=== PATIENT | male | born 1995 | race Hispanic/Latino ===

== ENCOUNTER 2025-06-19 06:06 | Inpatient (IN) | payer OTHER, SELFPAY ==
[2025-06-19] MEDS ORDERED: DICYCLOMINE HCL 20 MG/2 ML AMP IM ONE (06:37)
[2025-06-19] MEDS ORDERED: KETOROLAC 30 MG/ML INJ ONE (06:37)
[2025-06-19] MEDS ORDERED: MORPHINE 4 MG/ML SYR ONE (06:37)
[2025-06-19] MEDS ORDERED: NA CHLORIDE 0.9% 1,000 ML ONE (06:37)
[2025-06-19] MEDS ORDERED: FAMOTIDINE 20 MG/2 ML VIAL IV ONE (06:37)
[2025-06-19] MEDS ORDERED: ONDANSETRON 4 MG/2 ML VIAL ONE (06:37)
[2025-06-19 06:43] LABS: Absolute Lymphocytes (CBC) 0.9 K/uL (0.7-4.9); Hematocrit 45.7 % (39.6-49.0); Hemoglobin 15.9 g/dL (13.6-17.9); MCH 31.7 pg (27.0-35.0); MCHC 34.9 g/dL (32.0-36.0); MCV 91.0 fL (80-100); MPV 9.2 fL (7.6-11.3); Nucleated RBC Absolute Count 0.0 (0-0); Nucleated Red Blood Cells % 0.1 % (0-0); RBC Red Blood Cell Count 5.02 M/uL (4.33-5.43); White Blood Count 19.40 thou/uL (4.3-10.9)
--- NOTE | 2025-06-19 07:33 | RAD REPORT ---
EXAMINATION: CT ABDOMEN AND PELVIS WITH CONTRAST CLINICAL INDICATION: Abdominal pain TECHNIQUE: CT abdomen and pelvis was performed, after the administration of 100 cc Isovue-300.. Sagit cecelia and coronal reconstructions were obtained. One or more of the following dose reduction techniques were used: Automated exposure control, adjustment of the mA and kV according to patient si ze, and iterative reconstruction. Unless otherwise specified, incidental findings do not require dedicated imaging follow-up. [id number]. Oral contrast was not given which limits evaluation of bowel and appendix. COMPARISON: .None FINDINGS: Liver, spleen, pancreas, adrenals and kidneys appear unremarkable No evidence of diverticulitis. The appendix is not visualized. No stranding adjacent Cholelithiasis. Gallbladder mildly distended. : IMPRESSION: Cholelithiasis. Mild gallbladder distention. Ultrasound is recommended
[2025-06-19 07:37] LABS: ALT/SGPT 50.0 U/L (16-61); AST/SGOT 29.0 U/L (15-37); Albumin 3.8 g/dL (3.4-5.0); Albumin/Globulin Ratio 1.2 (1.1-1.8); Alkaline Phosphatase 53.0 U/L (45-117); Anion Gap 13.8 mEq/L (5.0-15.0); BUN Blood Urea Nitrogen 15.0 mg/dL (7-18); Globulin 3.2 g/dL (2.3-3.5); Glucose Level 139.0 mg/dL (74-106); Lipase 21.0 U/L (13-75); Potassium 3.8 mEq/L (3.5-5.1)
[2025-06-19] MEDS ORDERED: PIPERACIL/TAZO 3.375 GM VIAL IV ONE (07:50)
[2025-06-19] MEDS ORDERED: NA CHLORIDE 0.9% 100 ML ONE (07:50)
--- NOTE | 2025-06-19 08:51 | RAD REPORT ---
EXAM: Abdominal exam Limited ultrasound CLINICAL HISTORY: Abdominal pain COMPARISON: June 19, 2025 CT FINDINGS: Several gallstones. Largest 2.2 cm. One lies within the gallbladder neck Borderline gallbladder wall thickening Biliary tree normal caliber IMPRESSION: Cholelithiasis. Borderline gallbladder wall thickening may indicate cholecystitis
--- NOTE | 2025-06-19 09:01 | EDPHYS ---
Physician Documentation [facility] Name: Fco Santiago Age: 29 yrs Sex: Male : 1995 Arrival Date: 06/19/2025 Time: 06:06 Bed 15 Private MD: ED Physician Jones Strange HPI: 06/19 06:33 This 29 yrs old Other Race Male presents to ER via Unassigned with complaints of sp4 Abdominal Pain, Nausea/Vomiting, stomach is buring. 06:33 29-year-old male presents with acute onset of left upper quadrant abdominal pain sp4 associated with nausea and vomiting after consuming [employer] last night at 7 PM patient reported 3 episodes of vomiting., Denied diarrhea. Historical: - Allergies: 06:37 No Known Allergies; vc1 - Home Meds: 06:37 None [Active]; vc1 - PMHx: 06:37 None; vc1 - PSHx: 06:37 None; vc1 - Immunization history:: Client reports receiving the 2nd dose of the Covid vaccine, Flu vaccine is not up to date. - Infectious Disease History:: Denies. - Family history:: not pertinent. - Social history:: Smoking status: Patient denies any tobacco usage or history of. ROS: 06:34 Constitutional: Negative for fever, chills, and weight loss, positive nausea sp4 vomiting, positive abdominal pain 06:34 All other systems are negative, Exam: 06:34 Constitutional: This is a well developed, well nourished patient who is awake, alert, sp4 and in no acute distress. Head/Face: Normocephalic, atraumatic. Eyes: Pupils equal round and reactive to light, extra-ocular motions intact. Lids and lashes normal. Conjunctiva and sclera are not injected. Cornea within normal limits. Periorbital areas with no swelling, redness, or edema. ENT: Nares patent. No nasal discharge, no septal abnormalities noted. Tympanic membranes are normal and external auditory canals are clear. Oropharynx with no redness, swelling, or masses, exudates, or evidence of obstruction, uvula midline. Mucous membranes moist. Neck: Trachea midline, no thyromegaly or masses palpated, and no cervical lymphadenopathy. Supple, full range of motion without nuchal rigidity, or vertebral point tenderness. Chest/axilla: Normal chest wall appearance and motion. Nontender with no deformity. No lesions are appreciated. Cardiovascular: Regular rate and rhythm with a normal S1 and S2. No gallops, murmurs, or rubs. No pulse deficits. Respiratory: Lungs have equal breath sounds bilaterally, clear to auscultation and percussion. No rales, rhonchi or wheezes noted. No increased work of breathing, no retractions or nasal flaring. Abdomen/GI: Soft, with normal bowel sounds. No distension or tympany. No guarding , positive upper abdominal tenderness without rebound Back: No spinal tenderness. No costovertebral tenderness. Skin: Warm, dry with normal turgor. Normal color with no rashes, no lesions, and no evidence of cellulitis. MS/ Extremity: Pulses equal, no cyanosis. Neurovascular intact. Full, normal range of motion. Neuro: Awake and alert, GCS 15, oriented to person, place, time, and situation. Cranial nerves II-XII grossly intact. Motor strength 5/5 in all extremities. Sensory grossly intact. Psych: Awake, alert, with orientation to person, place and time. Behavior, mood, and affect are within normal limits Vital Signs: 06:29 BP 124 / 69; Pulse 97; Resp 22; Temp 99.2; Pulse Ox 100% ; Weight 90.72 kg; Height 5 vc1 ft. 7 in. ; Pain 9/10; 07:00 BP 129 / 78; Pulse 96; Resp 18; Pulse Ox 100% ; bp 08:09 BP 112 / 74; Pulse 97; Resp 18; Pulse Ox 98% ; bp 06:29 Body Mass Index 31.32 (90.72 kg, 170.18 cm) vc1 06:29 Pain Scale: Adult vc1 MDM: 06:28 Medical Screening Exam initiated sp4 07:47 Data reviewed: vital signs, nurses notes, lab test result(s), radiologic studies. sp3 Transition of care: Care assumed from Terrence Ramos MD. ED course: Patient taken over by me from nighttime physician for pending workup. CT scan demonstrates cholelithiasis with distended gallbladder. Ultrasound pending to further evaluate. 19,000 WBC count noted. Will go ahead and start antibiotics. Disposition pending workup and patient course with probable admission.. 09:00 ED course: Diagnosed confirmed with ultrasound demonstrating stone in the gallbladder sp3 neck. Zosyn has already been started. Patient will be admitted to the hospital service with on-call surgeon for surgical consultation.. 06/19 06:28 Order name: CBC with Diff sp4 06/19 06:28 Order name: CMP; Complete Time: 07:42 sp4 06/19 06:28 Order name: Lipase; Complete Time: 07:42 sp4 06/19 06:52 Order name: CBC Smear Scan EDMS 06/19 09:36 Order name: CBC with Automated Diff EDMS 06/19 09:36 Order name: CBC with Automated Diff EDMS 06/19 09:36 Order name: CBC with Automated Diff EDMS 06/19 09:36 Order name: CBC with Automated Diff EDMS 06/19 09:36 Order name: CBC with Automated Diff EDMS 06/19 09:36 Order name: Comprehensive Metabolic Panel EDMS 06/19 09:36 Order name: Comprehensive Metabolic Panel EDMS 06/19 09:36 Order name: Comprehensive Metabolic Panel EDMS 06/19 09:36 Order name: Comprehensive Metabolic Panel EDMS 06/19 09:36 Order name: Comprehensive Metabolic Panel EDMS 06/19 06:40 Order name: CT Abd/Pelvis - IV Contrast Only; Complete Time: 07:42 sp4 06/19 07:43 Order name: US Abdomen Limited; Complete Time: 08:52 sp3 06/19 06:28 Order name: IV Saline Lock; Complete Time: 06:59 sp4 06/19 06:28 Order name: Labs collected and sent; Complete Time: 07:00 sp4 06/19 06:49 Order name: Labs - recollect needed: recollect green top; Complete Time: 07:14 bd Administered Medications: 06:59 Drug: Famotidine IVP 20 mg IVP once; dilute with 10 mL 0.9% NaCl; give over 2 minutes tb4 Route: IVP; Site: left antecubital; 06:59 Drug: TORadol - Ketorolac IVP 30 mg IVP once Route: IVP; Site: left antecubital; tb4 06:59 Drug: Ondansetron IVP 8 mg IVP once; over 2 minutes Route: IVP; Site: left antecubital; tb4 06:59 Drug: Dicyclomine IM 20 mg IM once Route: IM; Site: right deltoid; tb4 06:59 Drug: NS 0.9% IV 1000 ml IV at 1000 ml once; to be given as a bolus over 60 minutes tb4 Route: IV; Rate: 1000 ml; Site: left antecubital; 07:00 Drug: morphine IVP or IV 4 mg IVP once over 4 mins Route: IVP; Infused Over: 4 mins; tb4 Site: left antecubital; 07:14 Drug: NS 0.9% IV 1000 ml IV at 1 bolus Per protocol; to be given as a bolus over 60 bp minutes Route: IV; Rate: 1 bolus; Site: left antecubital; 08:02 Drug: Piperacillin-Tazobactam IVPB 3.375 grams IVPB once over 60 mins; (mix in NS 100 ar8 mL) Route: IVPB; Infused Over: 60 mins; Site: left antecubital; Disposition Summary: 06/19/25 09:00 Hospitalization Ordered Notes: Hospitalization Status: Observation sp3 Provider: Graham Rodríguez sp3 Location: Telemetry/MedSurg (observation) sp3 Condition: Stable sp3 Problem: new sp3 Symptoms: are unchanged sp3 Bed/Room Type: Standard sp3 Room Assignment: 224(06/19/25 10:52) jl7 Diagnosis - Acute cholecystitis sp3 Forms: - Medication Reconciliation Form sp3 - SBAR form sp3 - Leadership Thank You Letter sp3 Signatures: Dispatcher [employer] EDMS Janett Cordoba Jahala RN RN jl7 Nazario Francis, RN RN Jones Ibarra MD MD sp3 Marcella Simmons RN RN 1 Terrence Ramos MD MD sp4 Linh Benavides RN RN tb4 Aris Hubbard, RN RN ar8 Corrections: (The following items were deleted from the chart) 06:40 06:40 Abdomen Pelvis W Con+CT.RAD.BRZ ordered. EDMS EDMS 09:37 06:28 UA Rfx Elías Cult if indicated+U.LAB.BRZ ordered. EDMS EDMS 10:52 09:00 sp3 jl7
--- NOTE | 2025-06-19 09:01 | ER ---
Nurse's Notes [facility] Name: Fco Santiago Age: 29 yrs Sex: Male : 1995 Arrival Date: 06/19/2025 Time: 06:06 Bed 15 Private MD: Diagnosis: Acute cholecystitis Presentation: 06/19 06:29 Chief complaint: Patient states: started having severe upper abdominal pain that wraps vc1 around to the back then down to my belly button. Vomited 3 times. Everything started after eating [employer]. Coronavirus screen: Client denies travel out of the [place] in the last 14 days. At this time, the client does not indicate any symptoms associated with coronavirus-19. Ebola Screen: Patient negative for fever greater than or equal to 101.5 degrees Fahrenheit, and additional compatible Ebola Virus Disease symptoms Patient denies exposure to infectious person. Patient denies travel to an Ebola-affected area in the 21 days before illness onset. No symptoms or risks identified at this time. Initial Sepsis Screen: Does the patient meet any 2 criteria? RR > 20 per min. No. Patient's initial sepsis screen is negative. Does the patient have a suspected source of infection? No. Patient's initial sepsis screen is negative. Risk Assessment: Do you want to hurt yourself or someone else? Patient reports no desire to harm self or others. Onset of symptoms was June 18, 2025 at 21:00. 06:29 Method Of Arrival: Ambulatory vc1 06:29 Acuity: DONAVAN 3 vc1 Triage Assessment: 06:38 General: Appears in no apparent distress. uncomfortable, ill, obese, well groomed, well vc1 developed, well nourished, Behavior is calm, cooperative, appropriate for age. Pain: Complains of pain in epigastric area, right upper quadrant and left upper quadrant Pain radiates to mid back area and umbilical area Pain currently is 9 out of 10 on a pain scale. EENT: No deficits noted. No signs and/or symptoms were reported regarding the EENT system. Neuro: Level of Consciousness is awake, alert, obeys commands, Oriented to person, place, time. Cardiovascular: Capillary refill < 3 seconds. Respiratory: Airway is patent Respiratory effort is even, unlabored, Respiratory pattern is regular, symmetrical, Breath sounds are clear bilaterally. GI: Abdomen is round Reports epigastric pain, vomiting, Patient currently denies diarrhea. : No deficits noted. No signs and/or symptoms were reported regarding the genitourinary system. Derm: Skin is intact, is healthy with good turgor, Skin is dry, Skin is normal, Skin temperature is warm. Musculoskeletal: Circulation, motion, and sensation intact. Range of motion: intact in all extremities. Historical: - Allergies: 06:37 No Known Allergies; vc1 - Home Meds: 06:37 None [Active]; vc1 - PMHx: 06:37 None; vc1 - PSHx: 06:37 None; vc1 - Immunization history:: Client reports receiving the 2nd dose of the Covid vaccine, Flu vaccine is not up to date. - Infectious Disease History:: Denies. - Family history:: not pertinent. - Social history:: Smoking status: Patient denies any tobacco usage or history of. Screenin:37 [facility] ED Fall Risk Assessment (Adult) History of falling in the last 3 months, vc1 including since admission No falls in past 3 months (0 pts) Confusion or Disorientation No (0 pts) Intoxicated or Sedated No (0 pts) Impaired Gait No (0 pts) Mobility Assist Device Used No (0 pt) Altered Elimination Yes (1 pt) Score/Fall Risk Level 0 - 2 = Low Risk Oriented to surroundings, Maintained a safe environment, Educated pt \T\ family on fall prevention, incl call for assistance when getting out of bed, Assessed \T\ reinforced patient's understanding of fall precautions, Hourly rounding (assess needs \T\ fall precautionary measures) done. Abuse screen: Denies threats or abuse. Nutritional screening: No deficits noted. Tuberculosis screening: No symptoms or risk factors identified. Assessment: 07:00 Reassessment: RECD REPORT FROM HECTOR WHITING. 29YO HM P/W ABD PAIN AND N/V. CT PENDING. bp Vital Signs: 06:29 BP 124 / 69; Pulse 97; Resp 22; Temp 99.2; Pulse Ox 100% ; Weight 90.72 kg; Height 5 vc1 ft. 7 in. ; Pain 9/10; 07:00 BP 129 / 78; Pulse 96; Resp 18; Pulse Ox 100% ; bp 08:09 BP 112 / 74; Pulse 97; Resp 18; Pulse Ox 98% ; bp 06:29 Body Mass Index 31.32 (90.72 kg, 170.18 cm) vc1 06:29 Pain Scale: Adult vc1 ED Course: 06:10 Patient arrived in ED. gm2 06:27 Terrence Ramos MD is Attending Physician. sp4 06:37 Triage completed. vc1 06:37 Arm band placed on right wrist. vc1 06:38 Patient has correct armband on for positive identification. Bed in low position. Call vc1 light in reach. Provided Education on: Plan of care. Pulse ox on. NIBP on. 06:54 Inserted saline lock: 20 gauge in left antecubital area, using aseptic technique. oh1 Flushed with 10 mL NS. 07:01 Nazario Francis, JOHANNE is Primary Nurse. bp 07:07 Attending Physician role handed off by Terrence Ramos MD sp3 07:07 Jones Strange MD is Attending Physician. sp3 07:27 CT Abd/Pelvis - IV Contrast Only In Process Unspecified. EDMS 07:50 US at bedside. ar8 08:36 US Abdomen Limited In Process Unspecified. EDMS 09:00 Graham Rodríguez is Hospitalizing Provider. sp3 Administered Medications: 06:59 Drug: Famotidine IVP 20 mg IVP once; dilute with 10 mL 0.9% NaCl; give over 2 minutes tb4 Route: IVP; Site: left antecubital; 06:59 Drug: TORadol - Ketorolac IVP 30 mg IVP once Route: IVP; Site: left antecubital; tb4 06:59 Drug: Ondansetron IVP 8 mg IVP once; over 2 minutes Route: IVP; Site: left antecubital; tb4 06:59 Drug: Dicyclomine IM 20 mg IM once Route: IM; Site: right deltoid; tb4 06:59 Drug: NS 0.9% IV 1000 ml IV at 1000 ml once; to be given as a bolus over 60 minutes tb4 Route: IV; Rate: 1000 ml; Site: left antecubital; 07:00 Drug: morphine IVP or IV 4 mg IVP once over 4 mins Route: IVP; Infused Over: 4 mins; tb4 Site: left antecubital; 07:14 Drug: NS 0.9% IV 1000 ml IV at 1 bolus Per protocol; to be given as a bolus over 60 bp minutes Route: IV; Rate: 1 bolus; Site: left antecubital; 08:02 Drug: Piperacillin-Tazobactam IVPB 3.375 grams IVPB once over 60 mins; (mix in NS 100 ar8 mL) Route: IVPB; Infused Over: 60 mins; Site: left antecubital; Medication: 06:38 VIS not applicable for this client. vc1 Outcome: 09:00 Decision to Hospitalize by Provider. sp3 12:01 Patient left the ED. bp Signatures: Dispatcher [employer] EDMS Nazario Francis, RN RN bp Jones Strange MD MD sp3 Marcella Simmons RN RN vc1 Terrence Ramos MD MD sp4 Shelby Knott 2 Kathy Wakefield co1 Linh Benavides RN RN tb4 Aris Hubbard RN RN ar8
[2025-06-19] MEDS ORDERED: ONDANSETRON 4 MG/2 ML VIAL IV PRN (09:32)
[2025-06-19] MEDS ORDERED: ACETAMINOPHEN 325 MG TABLET PO PRN (09:32)
--- NOTE | 2025-06-19 09:42 | P.HP ---
Certification for Inpatient Patient admitted to: Inpatient With expected LOS: >2 Midnights Patient will require the following post-hospital care: None Practitioner: I am a practitioner with admitting privileges, knowledge of patient current condition, hospital course, and medical plan of care. Services: Services provided to patient in accordance with Admission requirements found in Title 42 Section 412.3 of the Code of Federal Regulations Patient History Date of Service: 06/19/25 Reason for admission: Acute cholecystitis History of Present Illness: 29-year-old otherwise healthy male presents emergency department chief complaint of epigastric pain and vomiting that began last night. He was evaluated in the emergency department his white blood cell count was 19.4 CT of the abdomen pelvis was performed which showed cholelithiasis with mild gallbladder distention, follow-up abdominal ultrasound was performed which showed borderline gallbladder wall thickening which may indicate cholecystitis. ED staff discussed the case with general surgery who wishes for patient to be admitted to hospital and will consult, likely cholecystectomy during ho spitalization. - Past Medical/Surgical History -: None -: None Psychosocial/ Personal History: Lives at home with family - Social History Alcohol use: No CD- Drugs: No Caffeine use: No Place of Residence: Home Review of Systems 10-point ROS is otherwise unremarkable Gastrointestinal: Nausea, Vomiting, Abdominal Pain Physical Examination - Physical Exam General: Alert, In no apparent distress, Oriented x3 HEENT: Atraumatic, PERRLA, EOMI Neck: Supple, 2+ carotid pulse no bruit, No LAD Respiratory: Clear to auscultation bilaterally, Normal air movement Cardiovascular: Regular rate/rhythm, Normal S1 S2 Gastrointestinal: Normal bowel sounds, Tenderness (Mild epigastric tenderness) Integumentary: No rashes Neurological: Normal gait, Normal speech, Normal strength at 5/5 x4 extr, Normal affect - Studies Laboratory Data (last 24 hrs) 06/19/25 06/19/25 07:10 06:35 WBC 19.40 H Hgb 15.9 Hct 45.7 Plt Count 313 Sodium 139 Potassium 3.8 BUN 15 Creatinine 1.02 Glucose 139 H Total Bilirubin 1.3 H AST 29 ALT 50 Alkaline Phosphatase 53 Lipase 21 Assessment and Plan - Plan Assessment: Acute cholecystitis Plan: Acute cholecystitis Clear liquid diet for now, n.p.o. at midnight Plan for surgical intervention tomorrow morning Empiric pain medications and antibiotics CBC, CMP in the morning DVT PPX: SCD Code status: Full code Discharge Plan: Home Plan to discharge in: 48 Hours - Advance Directives Does patient have a Living Will: No Does patient have a Durable POA for Healthcare: No - Code Status/Comfort Care Code Status Assessed: Yes (Full code) Critical Care: No Time Spent Managing Pts Care (In Minutes): 65
[2025-06-19 10:52] LABS: Blood Morphology Comment NOT SEEN (NOT SEEN); White Blood Cell Scan OK (OK)
[2025-06-19] MEDS: NA CHLORIDE 0.9% 1,000 ML IV SCH (12:10)
[2025-06-19] MEDS: HYDROCODONE/APAP 5/325 MG TAB PO PRN (12:24)
[2025-06-19] MEDS: PIPER TAZO 3.375 GM in NA CHLORIDE 0.9% 100 ML IV SCH (17:20)
[2025-06-20 05:56] LABS: Absolute Lymphocytes (CBC) 2.1 K/uL (0.7-4.9); Hematocrit 38.7 % (39.6-49.0); Hemoglobin 13.6 g/dL (13.6-17.9); MCH 32.0 pg (27.0-35.0); MCHC 35.2 g/dL (32.0-36.0); MCV 90.8 fL (80-100); MPV 8.8 fL (7.6-11.3); Nucleated RBC Absolute Count 0.0 (0-0); Nucleated Red Blood Cells % 0.0 % (0-0); RBC Red Blood Cell Count 4.26 M/uL (4.33-5.43); White Blood Count 10.00 thou/uL (4.3-10.9)
[2025-06-20 06:12] LABS: ALT/SGPT 165.0 U/L (16-61); AST/SGOT 97.0 U/L (15-37); Albumin 2.9 g/dL (3.4-5.0); Albumin/Globulin Ratio 1.0 (1.1-1.8); Alkaline Phosphatase 59.0 U/L (45-117); Anion Gap 8.4 mEq/L (5.0-15.0); BUN Blood Urea Nitrogen 8.0 mg/dL (7-18); Globulin 2.9 g/dL (2.3-3.5); Glucose Level 103.0 mg/dL (74-106); Potassium 3.4 mEq/L (3.5-5.1)
--- NOTE | 2025-06-20 09:37 | RAD REPORT ---
EXAMINATION: MR CHOLANGIOGRAM CLINICAL INDICATION: Male, 29 years old. r/o bile duct obstruction TECHNIQUE: Multiplanar, multisequence MR imaging of the abdomen without intravenous contrast, and wit h specific attention to the biliary system. Unless otherwise specified, incidental findings do not require dedicated imaging follow-up. 3D MIP reconstruction performed. COMPARISON: No prior exam. FINDINGS: GALLBLADDER: There are multiple calculi present including near the gallbladder neck. Moderate pericho lecystic fluid. BILE DUCTS: No biliary ductal dilatation. LIVER: Normal in size, contour, and signal without evidence of fatty infiltration or iron deposition. No focal lesion. PANCREAS: Normal signal. No mass, ductal dilation, or reagan-pancreatic fluid. LYMPH NODES: No lymphadenopathy. ADDITIONAL FINDINGS: Mild fluid/edema in the right upper quadrant fat. IMPRESSION: Cholelithiasis with moderate pericholecystic fluid suspicious for acute cholecystitis. No pathologic biliary tree dilatation.
[2025-06-20] MEDS: KCL 20 MEQ/100 mL IVPB 20 MEQ/100 ML BAG IV SCH (10:00)
[2025-06-20] MEDS: LIDOCAINE HCL/EPINEPHRINE 20 ML MDV ONE (11:12)
[2025-06-20] MEDS ORDERED: NEOSTIGMINE 1 MG/ML -10 ML VIAL ONE (11:49)
[2025-06-20] MEDS ORDERED: GLYCOPYRROLATE 0.2 MG/ML SYR ONE (11:49)
[2025-06-20] MEDS ORDERED: FENTANYL CITR 100 MCG/2 ML ONE (11:49)
[2025-06-20] MEDS ORDERED: ONDANSETRON 4 MG/2 ML VIAL ONE (11:49)
[2025-06-20] MEDS ORDERED: ROCURONIUM 50 MG/5 ML VIAL IV ONE (11:50)
[2025-06-20] MEDS ORDERED: MIDAZOLAM HCL 2 MG/2 ML INJ ONE (11:50)
[2025-06-20] MEDS ORDERED: LIDOCAINE 2% MPF 5 ML VIAL ONE (11:52)
--- NOTE | 2025-06-20 12:01 | P.PN ---
Date of Service: 06/20/25 Subjective: seen after surgery doing well pain 04/23 Physical Exam: Gen: Alert, Oriented, NAD CV: Regular rate and rhythm, no edema Pulm: Nonlabored respirations on room air, clear bilaterally Abdomen: Soft, moderate tenderness, nondistended Neuro: Normal strength, normal affect Problem List: Acute cholecystitis on admission, presents with epigastric pain associated with nausea/vomiting CT abdomen and abdominal u/s showed cholelithiasis with mild gallbladder distention MRCP (06/20): Cholelithiasis with moderate pericholecystic fluid suspicious for acute cholecystitis. No pathologic biliary tree dilatation Dr. Lopez, general surgeon consulted s/p haley baljeet earlier today pain control, IV fluids COntinue IV zosyn (06/19-) Code: Full Dispo: Home, ~1 day pending surgery, recovery
[2025-06-20] MEDS ORDERED: KETOROLAC 30 MG/ML INJ ONE (13:13)
--- NOTE | 2025-06-20 14:04 | P.OP ---
Preoperative diagnosis: Acute Calculous Cholecystitis Postoperative diagnosis: Acute Calculous Cholecystitis Primary procedure: Laparoscopic Cholecystectomy with ICG Cholangiography Anesthesia: GETA + Local Estimated blood loss: <5cc Specimen: Gallbladder Findings: Distended, Stone in neck, hydropic, adhesions Complications: None Implants: Dipti powder Transferred to: Recovery Room Condition: Good
[2025-06-20] MEDS: HYDROMORPHONE HCL 0.5 MG/0.5 ML INJ ONE ×2 (14:35→14:41)
[2025-06-20] MEDS: POTASSIUM CL SA 10 MEQ TAB PO ONE (15:10)
--- NOTE | 2025-06-20 16:08 | CON ---
Date of Consultation: 06/19/2025 Brief History Of Present Illness: The patient is a 29-year-old man who presents to the emergency dep artment with epigastric right upper quadrant pain after eating greasy meals. He had been doing this for some time. He has had some nausea, vomiting associated with this area. He has had similar episo carmen before in the past on several occasions. He has never worked this up for any issue, whatsoever. Past Medical History: Negative. Past Surgical History: Negative. Social History: He denies smoking, alcohol, or recreational drug use. Review of Systems: Ten-point review of systems other than HPI, denies. He lives at home with his mother. Physical Examination: General: At the time of my examination, he is awake, alert, and oriented. Psychiatric: Appropriate and conversive. HEENT: He is normocephalic. Sclerae anicteric. Mucous membranes are moist. Oropharynx is clear. Neck: Supple without JVD. Chest: Normal to expansion and excursion. Cardiovascular: Regular rate and rhythm. Pulmonary: Clear to auscultation bilaterally. Abdomen: Soft with positive right upper quadrant tenderness to palpation and minimal on deep palpati on. Negative Walker sign. Extremities: No clubbing, cyanosis, or edema. Skin: Warm and dry. Laboratory Data: Revealed a white cell blood count of 19.4, hemoglobin is 15.9, hematocrit of 45.7, platelet count was 313. His sodium 139, potassium 3.8, chloride 106, carbon dioxide is 23, BUN 15, c reatinine 1.0, glucose 139, AST 29, ALT 50, alkaline phosphatase was 53, and T bilirubin was 1.3, lip ase is 21. He had imaging performed, which included an ultrasound which showed cholelithiasis and eloisa rderline gallbladder wall thickening. In addition, he had a CT scan which was officially read as gal lbladder mildly distended, cholelithiasis, mild gallbladder wall distention. Assessment And Plan: This is a 29-year-old male who came in at this time calculous cholec ystitis. 1. IV fluid hydration. 2. Antibiotic coverage. 3. I have explained the risks, benefits, and alternatives of laparoscopic possible open cholecystecto my with indocyanine green cholangiography including, but not limited to, bleeding; infection; damage to surrounding tissue; need for further operative procedure; injury to bile ducts, intestines; blood clots; heart attack; strokes; and other unforeseen complications in the perioperative period. The pa tient displayed understanding of the above-stated plan and agreed to proceed as indicated. ROHAN/ALESSIA Voice ID: [id number] Report ID: [id number]
[2025-06-20] MEDS: MORPHINE 2 MG/ML SYR IV PRN (20:14)
--- NOTE | 2025-06-20 21:49 | OP ---
Date of Procedure: 06/20/2025 Surgeon: Bimal Lopez MD, Preoperative Diagnosis: Acute calculous cholecystitis. Postoperative Diagnosis: Acute calculous cholecystitis. Procedure Performed: Laparoscopic cholecystectomy with indocyanine green cholangiography. Anesthesia: General endotracheal plus local with 1% lidocaine with epinephrine. Estimated Blood Loss: Less than 5 cc. Specimen: Gallbladder. Findings: Distended gallbladder, stone impacted in the neck, hydropic gallbladder with significant a dhesions. Complications: None. Implants: The patient had implants of Dipti powder. Disposition: The patient was transferred to recovery room in good condition. Procedure In Detail: After informed consent was obtained, patient was brought to the operating room, prepped and draped in the usual sterile fashion after adequate anesthesia was achieved. I anestheti zed an area in the supraumbilical position down to the subcutaneous tissues. A 5-mm 0-degree optical trocar was introduced into the abdomen without incident or complication. Insufflation was obtained to 15 mmHg, at this time. There was no injury to vital structures upon entry into the abdomen. Thre e additional trocars were placed, one in the epigastrium, one in the right upper quadrant, one in the right mid abdomen. All of these were similarly anesthetized, sharply incised. A [address] aced under direct vision without incident or complication. The patient was positioned head up right- side up position. Ratcheted grasper was used to grasp the patient's gallbladder, placed towards the patient's right shoulder. Dissection continued down to the Jareth pouch of the gallbladder to allo w for visualization of the gallbladder after taking down significant intraabdominal adhesions. The g allbladder was quite thickened and distended requiring decompression needle prior to manipulation. A t this point, the decompression needle was brought in and dark thick viscous bile was removed partial ly. However, it was thick and viscous, and as such, it was incompletely drained, at this time. I gr asped the gallbladder, placed it towards the patient's right shoulder. Dissection continued down the Jareth pouch of the gallbladder, dissecting out two structures identified as both cystic duct and cystic artery. Critical view of safety was obtained at this time. I then performed indocyanine gree n cholangiography, confirmed the cystic duct, common duct confluence to ensure that the proposed larios section site was far enough away from the common duct to allow for appropriate placement of the clips . At this point, the structure was ligated between double titanium clips on the proximal side, singl y on the distal side of both the cystic duct and cystic artery. After this was ligated, the gallblad basil was removed from the hepatic fossa, placed in an EndoCatch bag, removed from the umbilical trocar site, sent off for pathologic examination. The area was copiously irrigated with multiple times and completely clear. Hemostasis was achieved using electrocautery and multiple portions of the subhepa tic space and hepatic fossa. After fulguration was complete, the area was inspected. Hemostasis was achieved. At this point, I irrigated the area copiously multiple times under desufflation pressure, found to be in good position. At this point, after this was completed, I proceeded to place Dipti hemostatic powder after all remaining effluent was suctioned out after the patient was repositioned, at this point, the Dipti powder was in good anatomic position. There was no leakage of bile. The i ndocyanine green cholangiography confirmed no leakage of bile at the end of the procedure. At this p oint, the patient was positioned back in neutral position. The remaining effluent was suctioned out. I then closed the 12 mm trocar site using a Nestor-Adri suture passer with an 0 Vicryl in inter rupted fashion with good approximation of tissue. The abdomen was then desufflated under direct visi on without incident or complication. The remainder of trocars were removed. All skin incisions were then copiously irrigated and closed with interrupted winsome, at this point. The patient tolerated the procedure without incident or complication, transferred to PACU in good condition. All counts were correct at the end of the case. ROHAN/ALESSIA Voice ID: [id number] Report ID: [id number]
[2025-06-21 07:48] LABS: Absolute Lymphocytes (CBC) 1.5 K/uL (0.7-4.9); Hematocrit 37.4 % (39.6-49.0); Hemoglobin 13.1 g/dL (13.6-17.9); MCH 32.2 pg (27.0-35.0); MCHC 35.0 g/dL (32.0-36.0); MCV 92.0 fL (80-100); MPV 8.9 fL (7.6-11.3); Nucleated RBC Absolute Count 0.0 (0-0); Nucleated Red Blood Cells % 0.0 % (0-0); RBC Red Blood Cell Count 4.07 M/uL (4.33-5.43); White Blood Count 8.40 thou/uL (4.3-10.9)
[2025-06-21 08:10] LABS: ALT/SGPT 259.0 U/L (16-61); AST/SGOT 155.0 U/L (15-37); Albumin 2.7 g/dL (3.4-5.0); Albumin/Globulin Ratio 0.9 (1.1-1.8); Alkaline Phosphatase 118.0 U/L (45-117); Anion Gap 7.5 mEq/L (5.0-15.0); BUN Blood Urea Nitrogen 4.0 mg/dL (7-18); Globulin 3.0 g/dL (2.3-3.5); Glucose Level 104.0 mg/dL (74-106); Magnesium 1.9 mg/dL (1.6-2.4); Potassium 3.5 mEq/L (3.5-5.1)
--- NOTE | 2025-06-21 11:57 | P.PN ---
Date of Service: 06/21/25 Subjective: reports some burning pain in RUQ otherwise doing okay denies nausea vitals stable Physical Exam: Gen: Alert, Oriented, NAD CV: Regular rate and rhythm, no edema Pulm: Nonlabored respirations on room air, clear bilaterally Abdomen: Soft, moderate tenderness, nondistended Neuro: Normal strength, normal affect Problem List: Acute cholecystitis s/p lap baljeet (06/20) Elevated LFTS on admission, presents with epigastric pain associated with nausea/vomiting CT abdomen and abdominal u/s showed cholelithiasis with mild gallbladder distention MRCP (06/20): Cholelithiasis with moderate pericholecystic fluid suspicious for acute cholecystitis. No pathologic biliary tree dilatation s/p lap baljeet (06/20) with Dr. John Alba per surgery. CLD for now pain control, IV fluids Continue IV zosyn (06/19-) LFTs worse today. Continue to monitor GI consulted NPO at midnight for ERCP Code: Full Dispo: Home pending ERCP, LFTs improve
[2025-06-21] MEDS: POTASSIUM CL SA 10 MEQ TAB PO ONE (12:14)
[2025-06-21] MEDS ORDERED: DOCUSATE NA 100 MG CAP PO PRN (12:47)
[2025-06-21] MEDS: DOCUSATE NA 100 MG CAP PO SCH (12:54)
--- NOTE | 2025-06-21 17:08 | CON ---
Consulting Physician: Rubio Quintanilla. Physician Requesting Consultation: Dr. Bimal Lopez History Of Presenting Illness: The patient is a 29-year-old gentleman, who presented to the ER with complaints of epigastric pain, nausea, and vomiting, evaluated, had leukocytosis of 19.4. Imaging re vealed evidence of cholelithiasis with cholecystitis, underwent cholecystectomy by Dr. Lopez; [facility], since his LFTs have continued to worsen, initial bilirubin was 1.3 and today is 4.5, so Dr. Isael cook requested GI consultation for possible ERCP due to either retained stone versus other possibility could be bile duct injury or sludge. Past Medical History: None. Past Surgical History: None. Social History: Denies toxic habits. Review of Systems: GI: As in HPI, otherwise negative. Remainder of 10-point review of systems is negative. Physical Examination: HEAD: Atraumatic, normocephalic. EYES: Pupils equally reactive. NECK: Supple. CHEST: Clear to auscultation bilaterally. ABDOMEN: Soft, nontender, nondistended. Bowel sounds present. EXTREMITIES: No pedal edema. VITAL SIGNS: Reviewed. The patient is normotensive, not tachycardic, not tachypneic, afebrile. Laboratory Data: As mentioned above. AST, ALT, and alkaline phosphatase have also increased since a dmission. Impression: A 29-year-old gentleman admitted with acute cholecystitis with a negative MRCP; however, post cholecystectomy, worsening LFTs. Differential includes retained stone or sludge in the duct ve rsus duct injury versus edema causing worsening of LFTs. Plan: Continue current management. We will keep the patient n.p.o. after midnight. We will schedul e him for an ERCP. The risks and complications of the procedure which include, but are not limited t o bleeding, infection, perforation, anesthesia complications as well as acute pancreatitis. Discusse d 15%. The patient understands and agrees. We will continue to follow the patient and re peat his liver enzymes in the morning. US/MODL Voice ID: [id number] Report ID: [id number]
[2025-06-22 06:52] LABS: Absolute Lymphocytes (CBC) 1.5 K/uL (0.7-4.9); Hematocrit 36.7 % (39.6-49.0); Hemoglobin 13.1 g/dL (13.6-17.9); MCH 32.5 pg (27.0-35.0); MCHC 35.6 g/dL (32.0-36.0); MCV 91.2 fL (80-100); MPV 8.6 fL (7.6-11.3); Nucleated RBC Absolute Count 0.0 (0-0); Nucleated Red Blood Cells % 0.1 % (0-0); RBC Red Blood Cell Count 4.02 M/uL (4.33-5.43); White Blood Count 6.90 thou/uL (4.3-10.9)
[2025-06-22 07:15] LABS: ALT/SGPT 198.0 U/L (16-61); AST/SGOT 71.0 U/L (15-37); Albumin 2.8 g/dL (3.4-5.0); Albumin/Globulin Ratio 0.9 (1.1-1.8); Alkaline Phosphatase 127.0 U/L (45-117); Anion Gap 7.7 mEq/L (5.0-15.0); BUN Blood Urea Nitrogen 5.0 mg/dL (7-18); Bilirubin Indirect, Calculated 3.7 mg/dL (0.2-0.8); Globulin 3.1 g/dL (2.3-3.5); Glucose Level 97.0 mg/dL (74-106); Magnesium 1.9 mg/dL (1.6-2.4); Potassium 3.7 mEq/L (3.5-5.1)
[2025-06-22] MEDS ORDERED: MORPHINE 4 MG/ML SYR IV PRN (10:48)
--- NOTE | 2025-06-22 12:55 | P.PN ---
Date of Service: 06/22/25 Subjective: NPO for ERCP some pain overnight no BM but passing gas and burping vitals stable Physical Exam: Gen: Alert, Oriented, NAD CV: Regular rate and rhythm, no edema Pulm: Nonlabored respirations on room air, clear bilaterally Abdomen: Soft, moderate tenderness, nondistended Neuro: Normal strength, normal affect Problem List: Acute cholecystitis s/p lap baljeet (06/20) Elevated LFTS on admission, presents with epigastric pain associated with nausea/vomiting CT abdomen and abdominal u/s showed cholelithiasis with mild gallbladder distention MRCP (06/20): Cholelithiasis with moderate pericholecystic fluid suspicious for acute cholecystitis. No pathologic biliary tree dilatation s/p lap baljeet (06/20) with Dr. Lopez pain control, IV fluids Continue IV zosyn (06/19-) Monitor LFTs. Sandra bilanthony 4.5 GI consulted NPO for ERCP Code: Full Dispo: Home pending ERCP, LFTs improve
[2025-06-22] MEDS: Ringers Lactate 1,000 ML IV ONE (14:27)
[2025-06-22] MEDS ORDERED: MIDAZOLAM HCL 2 MG/2 ML INJ ONE (14:37)
[2025-06-22] MEDS ORDERED: FENTANYL CITR 100 MCG/2 ML ONE (14:37)
[2025-06-22] MEDS ORDERED: ONDANSETRON 4 MG/2 ML VIAL ONE (14:38)
[2025-06-22] MEDS ORDERED: LIDOCAINE 1% MPF 5 ML VIAL ONE (14:38)
[2025-06-23 05:37] LABS: Absolute Lymphocytes (CBC) 1.5 K/uL (0.7-4.9); Hematocrit 38.1 % (39.6-49.0); Hemoglobin 13.5 g/dL (13.6-17.9); MCH 32.4 pg (27.0-35.0); MCHC 35.5 g/dL (32.0-36.0); MCV 91.3 fL (80-100); MPV 8.6 fL (7.6-11.3); Nucleated RBC Absolute Count 0.0 (0-0); Nucleated Red Blood Cells % 0.1 % (0-0); RBC Red Blood Cell Count 4.18 M/uL (4.33-5.43); White Blood Count 6.90 thou/uL (4.3-10.9)
[2025-06-23] MEDS: PANTOPRAZOLE 40MG TABLET PO SCH (05:56)
[2025-06-23 05:59] LABS: ALT/SGPT 143.0 U/L (16-61); AST/SGOT 39.0 U/L (15-37); Albumin 2.8 g/dL (3.4-5.0); Albumin/Globulin Ratio 0.8 (1.1-1.8); Alkaline Phosphatase 126.0 U/L (45-117); Anion Gap 7.5 mEq/L (5.0-15.0); BUN Blood Urea Nitrogen 6.0 mg/dL (7-18); Globulin 3.3 g/dL (2.3-3.5); Glucose Level 102.0 mg/dL (74-106); Potassium 3.5 mEq/L (3.5-5.1)
--- NOTE | 2025-06-23 07:43 | RAD REPORT ---
EXAM: Fluoroscopy use, Fluoroscopy ERCP HISTORY: ERCP COMPARISON: None FINDINGS: A total of 3 images were sent to PACS, during a fluoroscopically guided ERCP. No radiologis t was involved in protocoling or performance of the study, and no radiologist was present for the duration of the procedure. No interpretation of the saved images will be provided. Total fluoroscopy time: 1:47. Cumulative dose: Not provided IMPRESSION: Documentation of fluoroscopy use as above.
[2025-06-23] MEDS: POTASSIUM CL SA 10 MEQ TAB PO ONE (08:21)
--- NOTE | 2025-06-23 10:38 | P.PN ---
Date of Service: 06/23/25 Subjective: feeling better today denies any new or worsening problems tolerating diet without issues afebrile Physical Exam: Gen: Alert, Oriented, NAD CV: Regular rate and rhythm, no edema Pulm: Nonlabored respirations on room air, clear bilaterally Abdomen: Soft, moderate tenderness, nondistended Neuro: Normal strength, normal affect Problem List: Acute cholecystitis s/p lap baljeet (06/20) Cholangiolitis Pappillary stenosis Gastric/Duodenal Ulcers Elevated LFTS on admission, presents with epigastric pain associated with nausea/vomiting CT abdomen and abdominal u/s showed cholelithiasis with mild gallbladder distention MRCP (06/20): Cholelithiasis with moderate pericholecystic fluid suspicious for acute cholecystitis. No pathologic biliary tree dilatation s/p lap baljeet (06/20) with Dr. Lopez pain control, IV fluids Continue IV zosyn (06/19-) GI is following s/p ERCP with stent placement with Dr. Ragsdale Found to have cholangiolitis, gastric ulcer, duodenal ulcer, pappillary stenosis Monitor LFTs. T. bili improving add PPI Code: Full Dispo: Home Pending further improvement of LFTs/T.bili
[2025-06-23 14:49] VITALS: BMI 33.7
[2025-06-23 21:21] VITALS: O2SAT 98
[2025-06-24 05:42] LABS: Hematocrit 39.6 % (39.6-49.0); Hemoglobin 13.7 g/dL (13.6-17.9); MCH 31.9 pg (27.0-35.0); MCHC 34.6 g/dL (32.0-36.0); MCV 92.1 fL (80-100); MPV 9.1 fL (7.6-11.3); RBC Red Blood Cell Count 4.30 M/uL (4.33-5.43); White Blood Count 7.90 thou/uL (4.3-10.9)
[2025-06-24 05:54] LABS: ALT/SGPT 117.0 U/L (16-61); AST/SGOT 30.0 U/L (15-37); Albumin 3.0 g/dL (3.4-5.0); Albumin/Globulin Ratio 0.9 (1.1-1.8); Alkaline Phosphatase 111.0 U/L (45-117); Anion Gap 8.6 mEq/L (5.0-15.0); BUN Blood Urea Nitrogen 6.0 mg/dL (7-18); Globulin 3.5 g/dL (2.3-3.5); Glucose Level 97.0 mg/dL (74-106); Potassium 3.6 mEq/L (3.5-5.1)
--- NOTE | 2025-06-24 08:58 | P.DS ---
Admission Date: 06/19/25 Discharge Date: 06/24/25 Disposition: ROUTINE DISCHARGE Reason for Admission: Acute cholecystitis Consultations: General surgery - Dr. Lopez GI - Dr. Ragsdale Brief History of Present Illness: 29 yo M, PMH: none Patient presents emergency department chief complaint of epigastric pain and vomiting that began last night. He was evaluated in the emergency department his white blood cell count was 19.4 CT of the abdomen pelvis was performed which showed cholelithiasis with mild gallbladder distention, follow-up abdominal ultrasound was performed which showed borderline gallbladder wall thickening which may indicate cholecystitis. ED staff discussed the case with general surgery who wishes for patient to be admitted to hospital and will consult, likely cholecystectomy during hospitalization. 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 CT abdomen/pelvis showed cholelithiasis with mild gallbladder distention. Abdominal ultrasound showed cholelithiasis with borderline gallbladder wall thickening. Dr. Lopez, general surgeon was consulted and recommended MRCP to further evaluate which showed cholelithiasis with moderate pericholecystic fluid suspicious for acute cholecystitis. No pathologic biliary tree dilatation. Patient was taken to OR on 06/20 for lap baljeet with Dr. Lopez. Postoperatively he had rising bilirubin and LFTs. GI was consulted, and Dr. Ragsdale performed ERCP on 06/22 performed sphincterotomy, biliary stent placement, and noted gastric and duodenal ulcers. Patient received IV zosyn while hospitalized and is to complete 2 weeks of oral Augmentin on discharge. Pantoprazole for acid suppression to help ulcer healing. Patient was feeling better, abdominal pain improving, tolerating diet without issues, and was deemed stable for discharge. Recommend soft bland diet for next 3-5 days. Can slowly ease back into regular diet over the next week. No heavy lifting over 10 lbs for 4-6 weeks unless otherwise instructed by Dr. Lopez Medications: Augmentin x2 weeks Pantoprazole 40mg daily. Follow up with GI/surgery to discuss possibly deescalating to daily pepcid after 1-2 months. [place] as needed for pain. Follow up: PCP 3-[address] Lopez in his office in [address] Ragsdale in a few weeks Please call to schedule / confirm appointments Physical Exam: Gen: Alert, Oriented, NAD CV: Regular rate and rhythm, no edema Pulm: Nonlabored respirations on room air, clear bilaterally Abdomen: Soft, nontender, nondistended Neuro: Normal strength, normal affect Vital Signs/Physical Exam: Temp Pulse Resp BP Pulse Ox 97.8 F 60 16 120/58 L 96 06/24/25 04:00 06/24/25 04:00 06/24/25 04:00 06/24/25 04:00 06/24/25 04:00 Laboratory Data at Discharge: WBC 7.90 thou/uL (4.3-10.9) 06/24/25 05:02 Hgb 13.7 g/dL (13.6-17.9) 06/24/25 05:02 Hct 39.6 % (39.6-49.0) 06/24/25 05:02 Plt Count 254 thou/uL (152-406) 06/24/25 05:02 Sodium 139 mEq/L (136-145) 06/24/25 05:02 Potassium 3.6 mEq/L (3.5-5.1) 06/24/25 05:02 BUN 6 mg/dL (7-18) L 06/24/25 05:02 Creatinine 0.88 mg/dL (0.70-1.30) 06/24/25 05:02 Glucose 97 mg/dL (74-106) 06/24/25 05:02 Magnesium 1.9 mg/dL (1.6-2.4) 06/22/25 06:41 Total Bilirubin 1.5 mg/dL (0.2-1.0) H 06/24/25 05:02 AST 30 U/L (15-37) 06/24/25 05:02 ALT 117 U/L (16-61) H 06/24/25 05:02 Alkaline Phosphatase 111 U/L (45-117) 06/24/25 05:02 Lipase 21 U/L (13-75) 06/19/25 07:10 Home Medications: Amox/Clavulanate [Augmentin 875-125 Tab] 1 tab PO BID 12 Days #24 tab 06/24/25 Hydrocodone 5/APAP 325 [[place] 5/325*] 1 tab PO Q8H PRN #15 tab 06/24/25 Pantoprazole [Protonix Tab*] 40 mg PO DAILYAC 30 Days #30 tab 06/24/25 New Medications: Amox/Clavulanate [Augmentin 875-125 Tab] 1 tab PO BID 12 Days #24 tab Hydrocodone 5/APAP 325 [[place] 5/325*] 1 tab PO Q8H PRN #15 tab PRN Reason: Pain Scale 5-7 (Moderate) Pantoprazole [Protonix Tab*] 40 mg PO DAILYAC 30 Days #30 tab Physician Discharge Instructions: Physician discharge instructions: Patient presented with worsening epigastric pain secondary to acute cholecystitis. CT abdomen/pelvis showed cholelithiasis with mild gallbladder distention. Abdominal ultrasound showed cholelithiasis with borderline gallbladder wall thickening. Dr. Lopez, general surgeon was consulted and recommended MRCP to further evaluate which showed cholelithiasis with moderate pericholecystic fluid suspicious for acute cholecystitis. No pathologic biliary tree dilatation. Patient was taken to OR on 06/20 for lap baljeet with Dr. Lopez. Postoperatively he had rising bilirubin and LFTs. GI was consulted, and Dr. Ragsdale performed ERCP on 06/22 performed sphincterotomy, biliary stent placement, and noted gastric and duodenal ulcers. Patient received IV zosyn while hospitalized and is to complete 2 weeks of oral Augmentin on discharge. Pantoprazole for acid suppression to help ulcer healing. Patient was feeling better, abdominal pain improving, tolerating diet without issues, and was deemed stable for discharge. Recommend soft bland diet for next 3-5 days. Can slowly ease back into regular diet over the next week. No heavy lifting over 10 lbs for 4-6 weeks unless otherwise instructed by Dr. Lopez Medications: Augmentin for ~12 more days to complete 2 week course Pantoprazole 40mg daily. Follow up with GI/surgery to discuss possibly deescalating to daily pepcid after 1-2 months. [place] as needed for pain. Follow up: PCP 3-[address] Lopez in his office in [address] Ragsdale in a few weeks Please call to schedule / confirm appointments Diet: [place] Activity: No lifting more than 10 lbs Followup: Bimal Lopez MD [ACTIVE - CAN ADMIT] - 1-2 Weeks NONE,NONE [Primary Care Provider] - Time spent managing pt's care (in minutes): 45
[2025-06-24] MEDS: POTASSIUM CL SA 10 MEQ TAB PO ONE (09:00)
[2025-06-24 09:04] VITALS: BP 105/57; TEMP 97.9
== END 2025-06-24 10:45 | disposition home or self-care (01) | DRG 418 ==
LOC: ER 06:06 → ERHOLD 09:32 → 2ND 11:18
PROVIDERS: ADMIT Internal Medicine; ATTEND Hospitalist
PROC: BF52200 Other Imaging of Gallbladder using Fluorescing Agent, Indocyanine Green Dye, Intraoperative (ICD-10-PCS; 2025-06-20)
PROC: 0FT44ZZ Resection of Gallbladder, Percutaneous Endoscopic Approach (ICD-10-PCS; principal; 2025-06-20 12:15)
DX: K80.00 Calculus of gallbladder with acute cholecystitis without obstruction (principal); K83.09 Other cholangitis; K26.9 Duodenal ulcer, unspecified as acute or chronic, without hemorrhage or perforation; K25.9 Gastric ulcer, unspecified as acute or chronic, without hemorrhage or perforation; R79.89 Other specified abnormal findings of blood chemistry
CPT/HCPCS: 36415; 74177; 74181; 76705; 80048; 80053; 80076; 82248; 83690; 83735; 85025; 85027; 88304; 94010; 96372; 96374; 96375; 99284; C1769; J0500; J1171; J1885; J2003; J2250; J2270; J2405; J2543; J2704; J2710; J3010; J7030; J7120; Q9967